=== PATIENT | female | born 1960 | race Caucasian/White ===

== ENCOUNTER 2016-07-14 21:36 | Emergency (ER) | payer OTHER ==
[2016-07-14 22:41] LABS: BILIRUBIN NEGATIVE (NEGATIVE); BLOOD 3+ Ery/uL (NEGATIVE); CLARITY CLEAR (CLEAR); COLOR YELLOW (YELLOW); GLUCOSE (U) 3+ mg/dL (NORMAL); KETONE (U) NEGATIVE (NEGATIVE); LEUKOCYTES NEGATIVE Leu/uL (NEGATIVE); NITRITE NEGATIVE (NEGATIVE); PROTEIN NEGATIVE (NEGATIVE); SPECIFIC GRAVITY 1.015 (1.001-1.030); UROBILINOGEN 0.2 mg/dL (0.2-1.0)
[2016-07-14 22:43] LABS: BASOPHIL 0.2 % (0-2); EOSINOPHIL 0.3 % (0-5); HCT 37.6 % (37.0-47.0); HGB 12.8 g/dl (12.5-16.0); LYMPHOCYTE 14.3 % (15-48); MCH 29.6 pg (25.0-31.0); MONOCYTE 4.7 % (0-12); MPV 10.8 fL (6.0-9.5); NEUTROPHIL 80.5 % (41-80); PLT 115 K/uL (150-400); RBC 4.32 M/uL (4.20-5.40); RDW 13.4 % (11.5-14.0); WBC 5.7 K/uL (4.0-10.5)
[2016-07-14 22:52] LABS: BACTERIA TRACE; SQUAMOUS EPITHELIAL CELLS RARE; URINARY RBC 20-50; URINARY WBC RARE
[2016-07-14 23:07] LABS: BILIRUBIN - TOTAL 0.8 mg/dL (0.1-1.0); CREATININE 0.8 mg/dL (0.5-1.0); GLOBULIN (CALCULATION) 3.1 g/dL (2.2-4.2); POTASSIUM 4.2 mmol/L (3.5-5.1); TOTAL PROTEIN 7.1 g/dL (6.4-8.3)
== END 2016-07-15 00:17 | disposition home or self-care (01) ==
LOC: FER 21:36
PROVIDERS: Internal Medicine
DX: E11.65 Type 2 diabetes mellitus with hyperglycemia (principal); Z88.1 Allergy status to other antibiotic agents; Z88.2 Allergy status to sulfonamides; Z88.8 Allergy status to other drugs, medicaments and biological substances; Z91.041 Radiographic dye allergy status
CPT/HCPCS: 36415; 80053; 81001; 85025; 87088